=== PATIENT | female | born 1990 | race Caucasian/White ===

== ENCOUNTER 2020-04-12 21:42 | Emergency (ER) | payer MEDICAID ==
[~2020-04-12] VITALS: Ht 152.4 cm; Wt 68.0 kg
[2020-04-13] MEDS ORDERED: cefTRIAXone SOD 1,000 MG VL IM ONE (01:45)
[2020-04-13 02:05] VITALS: BP 124/68
== END 2020-04-13 02:39 | disposition home or self-care (01) ==
LOC: ER 21:46
DX: L02.415 Cutaneous abscess of right lower limb (principal); L03.115 Cellulitis of right lower limb
CPT/HCPCS: 96372; 99283; J0696